=== PATIENT | female | born 1950 | race Caucasian/White ===

== ENCOUNTER 2017-10-08 11:11 | Outpatient (CLI) | payer MEDICARE, OTHER | END 2017-10-08 11:12 | disposition home or self-care (01) | LOC: BICMAMMO 11:11 | PROVIDERS: ATTEND Internal Medicine | DX: Z12.31 Encounter for screening mammogram for malignant neoplasm of breast (principal); R92.1 Mammographic calcification found on diagnostic imaging of breast; Z80.3 Family history of malignant neoplasm of breast | CPT/HCPCS: 77063; 77067 ==

== ENCOUNTER 2017-11-06 07:42 | Outpatient (CLI) | payer MEDICARE, OTHER ==
--- NOTE | 2017-11-06 13:44 | NM ---
RADIONUCLIDE GASTRIC EMPTYING SCAN: Date: 11/06/17 HISTORY: Nausea and vomiting RADIOPHARMACEUTICAL: 2 mCi technetium-99m sulfur colloid administered orally in scrambled eggs. FINDINGS/IMPRESSION: There is 58% emptying of the ingested gastric contents at 1 hour, 86% emptying at 2 hours, 91% emptyi ng at 3 hours, and 89% emptying at 4 hours. The calculated gastric emptying halftime measures 58 minutes. POS: [facility]
== END 2017-11-06 07:43 | disposition home or self-care (01) ==
LOC: NM 07:42
PROVIDERS: ATTEND Internal Medicine
DX: K59.00 Constipation, unspecified (principal); R11.2 Nausea with vomiting, unspecified
CPT/HCPCS: 78264; A9541

== ENCOUNTER 2018-03-16 20:02 | Inpatient (IN) | payer MEDICARE, OTHER ==
[~2018-03-16 20:02] MED LIST: ISOVUE-370 76%-LOCM 1 ML ONE
[2018-03-16] MEDS ORDERED: Albuterol Sulfate 2.5 mg/3 ml Neb ONE (20:39)
[2018-03-16] MEDS ORDERED: Lorazepam 2 MG/ML VIAL ONE (20:43)
[2018-03-16] MEDS ORDERED: methylPREDNISolone Sod Succ/PF 125 MG/2 ML VIAL ONE (20:46)
[2018-03-16] MEDS ORDERED: Magnesium 2 GM/50 ML BAG (IN WATER) ONE (20:46)
[2018-03-16 20:51] LABS: #Basophils 0.1 thou/uL (0.0-0.2); #Eosinphils 0.8 thou/uL (0.0-0.7); #Lymphocytes 3.8 thou/uL (1.20-3.40); #Neutrophils 4.9 thou/uL (1.40-6.50); %Basophils 0.5 % (0.0-1.0); %Eosinophils 7.4 % (0.0-10.0); %Lymphocytes 36.3 % (21.0-51.0); %Monocytes 9.6 % (0.0-10.0); %Neutrophils 46.2 % (42.0-75.0); Hemoglobin 14.3 g/dL (12.0-16.0); Mean Corpuscular HGB CONC 33.5 g/dL (32.0-36.0); Mean Corpuscular Hemoglobin 30.2 pg (27.0-31.0); Mean Corpuscular Volume 89.9 fL (78.0-98.0); Mean Platelet Volume 8.7 fL (7.4-10.4); Platelet Count 219 thou/uL (130-400); RBC Distribution Width 12.6 % (11.5-14.5); Red Blood Cell (RBC) Count 4.75 mill/uL (4.20-5.40); White Blood Cell (WBC) Count 10.5 thou/uL (4.8-10.8)
[2018-03-16 21:06] LABS: ALT (SGPT) 23 U/L (8-55); AST (SGOT) 36 U/L (5-34); Albumin 4.2 g/dL (3.4-4.8); Alkaline Phosphatase 93 U/L (40-150); Anion Gap 17 mmol/L (10-20); BUN (Urea Nitrogen) 14 mg/dL (9.8-20.1); Bilirubin, Total 0.3 mg/dL (0.2-1.2); Calc. Creatinine Clearance 0 mL/min (70-130); Calcium 9.2 mg/dL (7.8-10.44); Carbon Dioxide 24 mmol/L (23-31); Chloride 103 mmol/L (98-107); Estimated GFR-MDRD 67; Globulin 3.3 g/dL (2.4-3.5); Glucose 86 mg/dL (80-115); Magnesium 2.2 mg/dL (1.6-2.6); Potassium 3.5 mmol/L (3.5-5.1); Protein, Total 7.5 g/dL (6.0-8.3); Sodium 140 mmol/L (136-145)
[2018-03-16 21:40] LABS: Actual Bicarbonate (HCO3v) 26 mEq/L (22-28); Analyzer IN Cardio ER; Base Excess 0.3 mEq/L (-2.0 to +3.0); Calcium, Ionized 1.13 mmol/L (1.16-1.32); Chloride (ABG LAB) 101 mmol/L (98-106); Hemoglobin (Hb) 14.3 g/dL (11.7-16.1); Potassium - ABG Lab 3.03 mmol/L (3.70-5.30); Sodium 137.7 mmol/L (133-146); pH (venous) 7.38 (7.32-7.43)
--- NOTE | 2018-03-16 21:58 | RAD ---
ONE VIEW CHEST: History: Cough. Congestion. Comparison: 10-04-15 FINDINGS: Portable upright chest demonstrates a stable left sided transvenous pacemaker. Normal cardiac silhoue tte. Pulmonary vessels and hilum are normal. Costophrenic angles are clear. Chronic change of lung pa renchyma. Lung volumes are diminished, likely due to a poor inspiratory effort. No masses or consolid ation. No pneumothorax. No osseous abnormality. IMPRESSION: No acute cardiopulmonary process. POS: [facility]
[2018-03-16 22:32] LABS: Bilirubin Negative (Negative); Blood, Urine Negative (Negative); Clarity CLEAR (Clear); Glucose, Urine (Dipstick) Negative (Negative); Leukocyte Negative (Negative); Nitrite Negative (Negative); Protein, Urine (Dipstick) Negative (Neg-Trace); Specific Gravity, Urine 1.022 (1.002-1.036); pH, Urine 6.5 (5.0-9.0)
--- NOTE | 2018-03-16 23:54 | CT ---
CT ANGIOGRAM OF THE CHEST: History: Elevated D-Dimer. Cough and congestion. Shortness of breath. Comparison: None. Technique: CT angiogram of the chest was performed in the axial plane. 3D reformatted images are subm itted for interpretation. FINDINGS: Central bronchi are patent. Tiny bleb in the right lower lobe measuring 7 mm. No masses or consolidat ion. No pleural effusion or pneumothorax. There is evidence of previous bariatric surgical change. Upper abdominal solid organs are otherwise u nremarkable. Gallbladder is surgically absent. Left extrarenal pelvis is noted. No mediastinal mass, lymphadenopathy or hematoma. Heart size is within normal limits. No pericardial effusion. The thoracic aorta and upper abdominal aorta have normal caliber. No periaortic fat strandi ng. Adequate contrast opacification of the pulmonary arterial system to the level of segmental arteries. No filling defect to suggest thromboembolism. No lytic or blastic lesions in the osseous structures. IMPRESSION: 1. No evidence of pulmonary artery aneurysm to the level of the segmental arteries. POS: [facility]
[2018-03-17 00:46] LABS: Lactic Acid 1.3 mmol/L (0.5-2.2)
[2018-03-17 01:34] LABS: Troponin I Less than 0.010 ng/mL (< 0.028)
[2018-03-17] MEDS ORDERED: Bisacodyl 5 MG TAB PO PRN (03:03)
[2018-03-17] MEDS ORDERED: Acetaminophen 325 MG TAB PO PRN (03:03)
[2018-03-17] MEDS ORDERED: Senokot S 8.6-50 MG TAB PO PRN (03:03)
[2018-03-17] MEDS ORDERED: Ondansetron ODT 4 MG TAB PO PRN (03:03)
[2018-03-17] MEDS ORDERED: Ondansetron PF 4 MG/2 ML Vial IVP PRN (03:03)
[2018-03-17] MEDS ORDERED: Zolpidem Tartrate 5 MG TAB PO PRN (03:03)
[2018-03-17 03:06] LABS: Troponin I Less than 0.010 ng/mL (< 0.028)
[2018-03-17 03:37] VITALS: BMI 35.1
[2018-03-17] MEDS ORDERED: tiZANidine HCl 4 MG TAB PO SCH ×2 (05:15→21:00)
[2018-03-17] MEDS ORDERED: Melatonin 3 MG TAB PO SCH (05:15)
[2018-03-17 07:44] LABS: #Basophils 0.1 thou/uL (0.0-0.2); #Lymphocytes 0.4 thou/uL (1.20-3.40); #Monocytes 0.1 thou/uL (0.11-0.59); #Neutrophils 7.4 thou/uL (1.40-6.50); %Eosinophils 0.3 % (0.0-10.0); %Lymphocytes 5.2 % (21.0-51.0); %Neutrophils 92.5 % (42.0-75.0); Hemoglobin 13.1 g/dL (12.0-16.0); Mean Corpuscular HGB CONC 33.3 g/dL (32.0-36.0); Mean Corpuscular Hemoglobin 30.1 pg (27.0-31.0); Mean Corpuscular Volume 90.5 fL (78.0-98.0); Mean Platelet Volume 9.4 fL (7.4-10.4); Platelet Count 186 thou/uL (130-400); RBC Distribution Width 12.7 % (11.5-14.5); Red Blood Cell (RBC) Count 4.34 mill/uL (4.20-5.40)
[2018-03-17 07:55] VITALS: BP 122/57; TEMP 98
[2018-03-17 08:05] LABS: Anion Gap 17 mmol/L (10-20); BUN (Urea Nitrogen) 12 mg/dL (9.8-20.1); Calc. Creatinine Clearance 81 mL/min (70-130); Calcium 8.9 mg/dL (7.8-10.44); Carbon Dioxide 23 mmol/L (23-31); Chloride 102 mmol/L (98-107); Estimated GFR-MDRD 61; Glucose 245 mg/dL (80-115); Potassium 3.5 mmol/L (3.5-5.1); Sodium 138 mmol/L (136-145)
[2018-03-17] MEDS ORDERED: Famotidine 20 MG TAB PO SCH (09:00)
--- NOTE | 2018-03-17 13:37 | HP ---
REASON FOR ADMISSION: Acute bronchitis. HISTORY OF PRESENTING ILLNESS: The patient gives history of having fever, cold , and cough 10 days back. She had gone to see her primary care physician. She was given a cough syrup at bedtime and Tessalon Perles daily along with doxycycline. The patient went to [place] and came back 2 days back. She still has cough with expectoration of greenish sputum. No fever or such. Her shortness of breath got worse and the patient made it to the emergency room. Currently, she is feeling better this morning. Has no fever or chest pain, palpitation, PND, or orthopnea. She is ambulating and eating well. PAST MEDICAL AND SURGICAL HISTORY: History of migraine, pacemaker, dyslipidemia , hypothyroidism, paroxysmal atrial fibrillation, GERD, bilateral knee surgery with one side replacement, back surgery, appendectomy, carpal tunnel surgery, cholecystectomy, gastric bypass. CURRENT MEDICATIONS: Has finished a course of doxycycline and is taking a cough syrup with codeine p.r.n., Crestor, Synthroid, medication for GERD twice daily, flecainide 50 mg twice daily, aspirin 81 mg daily. ALLERGIES: ALLERGIC TO CODEINE, MORPHINE, AND PENICILLIN. SHE IS ALSO ALLERGIC TO ADHESIVES. PERSONAL HISTORY: Does not abuse alcohol or drugs. No history of smoking. FAMILY HISTORY: Mother at the age of 77 years. She has had history of coronary artery disease. Father at the age of 55. He has had RI and was a heavy smoker as well. Code status is full. Power of securities attorney is her . REVIEW OF SYSTEMS: CONSTITUTIONAL: Negative for weight loss or gain, ability to conduct usual activities. SKIN: Negative for rash, itching. EYES: Negative for double vision, pain. ENT/MOUTH: Negative for nose bleeding, neck stiffness, pain, tenderness. CARDIOVASCULAR: Negative for palpitations, dyspnea on exertion, orthopnea. RESPIRATORY: Negative for shortness of breath, wheezing, cough, hemoptysis, fever or night sweats. GASTROINTESTINAL: Negative for poor appetite, abdominal pain, heartburn, nausea , vomiting, constipation, or diarrhea. GENITOURINARY: Negative for urgency, frequency, dysuria, nocturia. MUSCULOSKELETAL: Negative for pain, swelling. NEUROLOGIC/PSYCHIATRIC: Negative for anxiety, depression. ALLERGY/IMMUNOLOGIC: Negative for skin rash, bleeding tendency. PHYSICAL EXAMINATION: GENERAL: The patient is a 67-year-old female, who is currently not in any acute distress. VITAL SIGNS: Blood pressure on arrival 168/88; pulse 86 per minute; respiratory rate 36 on arrival, currently 18 per minute; temperature 98.1 degrees Fahrenheit ; saturating 96% on room air. NECK: Supple. No elevated JVD. HEENT: Eyes; extraocular muscles intact. Pupils reacting to light. Oral cavity; mucous membranes are moist. No exudates or congestion. CARDIOVASCULAR SYSTEM: S1 and S2 heard. Regular rhythm. RESPIRATORY SYSTEM: Air entry 1+ bilateral. Scattered rhonchi plus no wheezes or rales. ABDOMEN: Soft. Bowel sounds heard. No tenderness, rigidity, or guarding. EXTREMITIES: No peripheral edema or calf tenderness. VASCULAR SYSTEM: Peripheral pulses 1+ bilateral. No ischemic ulcerations or gangrene. CENTRAL NERVOUS SYSTEM: No gross focal deficits noted. The patient is alert, awake, and oriented well. PSYCHIATRIC SYSTEM: The patient's mood is euthymic. No hallucinations or delusions. LABORATORY DATA: CT angio chest done, shows no evidence of PE. White count of 10, H and H of 14 and 42, platelet count 219 with 46% neutrophils , MCV is 89. BUN 14, creatinine 0.8, serum glucose 86. Troponin x2 negative. BNP is 87. UA shows no evidence of infection. Blood cultures preliminary x2 is negative. EKG done, shows sinus rhythm at 77 beats per minute with nonspecific ST-T wave changes. CLINICAL IMPRESSION AND PLAN: The patient should be shortly discharged to home as she is feeling much better. She is ambulating and eating well as well. She needs to continue a short course of prednisone along with Levaquin for 5 days and albuterol inhaler q.6 hourly p.r.n. She needs to continue all the rest of her medications as before. The patient has been advised to follow up with her primary care physician in 1 week. Her viral respiratory PCR has come back +ve for rhinovirus. Likely has had secondary bacterial infection with broncho pneumonia. Please note, this is a same day admit/discharge under observation status. Job ID: [id number] [facility]
--- NOTE | 2018-03-29 19:10 | EKG ---
Test Reason : Blood Pressure : / mmHG Vent. Rate : 077 BPM Atrial Rate : 077 BPM P-R Int : 120 ms QRS Dur : 076 ms QT Int : 398 ms P-R-T Axes : 050 -05 052 degrees QTc Int : 450 ms Sinus rhythm with Premature supraventricular complexes Otherwise normal ECG Confirmed by SANTOS BARRAZA ([id number]), managing editor EDUARDO MURPHY ([id number] on 03/29/2018 7:10:12 PM Referred By: Confirmed By:SANTOS BARRAZA
== END 2018-03-17 10:26 | disposition home or self-care (01) | DRG 195 ==
LOC: ERS 20:02 → OBSVTOIN 03-17 01:08 → 2SW 03-17 01:08
PROVIDERS: ADMIT Internal Medicine; ATTEND Internal Medicine
DX: J18.0 Bronchopneumonia, unspecified organism (principal); E78.5 Hyperlipidemia, unspecified; I48.0 Paroxysmal atrial fibrillation; K21.9 Gastro-esophageal reflux disease without esophagitis; E03.9 Hypothyroidism, unspecified; J20.6 Acute bronchitis due to rhinovirus; Z95.0 Presence of cardiac pacemaker; Z98.84 Bariatric surgery status; Z79.82 Long term (current) use of aspirin; Z79.899 Other long term (current) drug therapy; Z88.0 Allergy status to penicillin; Z88.8 Allergy status to other drugs, medicaments and biological substances; Z82.49 Family history of ischemic heart disease and other diseases of the circulatory system
CPT/HCPCS: 36415; 71045; 71275; 80048; 80053; 81003; 82805; 83605; 83735; 83880; 84484; 85025; 85379; 87040; 87633; 93005; 94660; 94760; 96361; 96365; 96366; 96375; G0378; J1956; J2060; J2930; J7611; J7620

== ENCOUNTER 2018-03-27 13:40 | Outpatient (CLI) | payer MEDICARE, OTHER ==
--- NOTE | 2018-03-27 15:17 | BD ---
BONE DENSITOMETRY: INDICATION: A 67-year-old female for postmenopausal osteoporosis screening. FINDINGS: Right hip femoral neck 0.686 T-Score: 1.5 Total right hip 0.751 T-Score: 1.6 Left hip femoral neck 0.626 T-Score: 2.0 Total right hip 0.790 T-Score: -1.2 IMPRESSION: Density of both femoral necks indicate osteopenia. TEN-YEAR FRACTURE RISK: Major osteoporotic fracture: 8.8%. Hip fracture: 1.0%. POS: [facility]
== END 2018-03-27 13:41 | disposition home or self-care (01) ==
LOC: BICMAMMO 13:40
PROVIDERS: ATTEND Internal Medicine
DX: Z13.820 Encounter for screening for osteoporosis (principal); M85.852 Other specified disorders of bone density and structure, left thigh; Z78.0 Asymptomatic menopausal state
CPT/HCPCS: 77080

== ENCOUNTER 2018-07-07 08:14 | Outpatient (CLI) | payer MEDICARE, OTHER ==
--- NOTE | 2018-07-07 09:14 | ULT ---
EXAM: US Gallbladder RUQ CLINICAL HISTORY: Transaminitis. COMPARISON: CT IVP dated December 26, 2015 FINDINGS: Liver:No focal hepatic lesion Bile ducts: Intrahepatic bile ducts are not dilated.The common bile measured 5.8 mm. Gallbladder: Surgically absent Martinez's sign:None Main portal vein:Patent with hepatopedal flow. Pancreas: Head and body appear normal; tail obscured by bowel gas. Right kidney: No pelvicalyceal dilatation. Right kidney measuring 10.6 cm in length. IMPRESSION: Normal RUQ ultrasound. Cholecystectomy.
== END 2018-07-07 08:15 | disposition home or self-care (01) ==
LOC: BICULT 08:14
PROVIDERS: ATTEND Internal Medicine
DX: R74.0 Nonspecific elevation of levels of transaminase and lactic acid dehydrogenase [LDH] (principal); Z90.49 Acquired absence of other specified parts of digestive tract
CPT/HCPCS: 76705

== ENCOUNTER 2018-09-25 08:59 | Outpatient (CLI) | payer MEDICARE, OTHER ==
--- NOTE | 2018-09-25 10:46 | CT ---
CT LUMBAR SPINE: Date: 09/25/18 Multiple axial tomograms obtained through the lumbar spine with multiplanar reconstruction. INDICATIONS: Intervertebral disc disorder. Lumbar radiculopathy. FINDINGS: Pedicle screws and rods are seen at L4-L5. There is an interbody implant at this level and anterior s crew. Partial fusion. Lumbar vertebra maintain height. Degenerative disc changes are seen at all levels. Prominent osteophy shalini from the lumbar vertebra. The T12-L1 broad based disc bulge flattens the thecal sac. Mild asymmetric bulge to the right. Right foraminal encroachment due to asymmetric disc bulge. At L1-2, broad based disc bulge and associated facet hypertrophy result in mild to moderate central c anal stenosis. Right foraminal stenosis due to disc bulge and hypertrophic change. At L2-3, diffuse disc bulge with associated facet and ligamentous hypertrophy results in moderate to severe central canal stenosis. Right foraminal stenosis secondary to asymmetric disc bulge into the r ight foramina and facet hypertrophy. At L3-4, there is broad based disc bulge. Prominent facet hypertrophy. Spinal canal is suboptimally e valuated due to spray artifact from the pedicle screws. There is laminectomy change posteriorly on th e left. Facet hypertrophy. Evidence of moderate central canal stenosis. Right foraminal stenosis due to asymmetric disc bulge and facet hypertrophy. Mild left foraminal stenosis. Pedicle screws at L4 are in place. The left pedicle screw traverses the lateral recess. At L4-5, spinal canal is obscured due to spray artifact. No evidence of central canal or foraminal st enosis. Pedicle screws at L5 appear in adequate position. At L5-S1, there is broad based disc bulge. Facet hypertrophy. Posterior laminectomy change. Congenita lly smaller thecal sac; however, the changes do result in moderate central canal stenosis. IMPRESSION: Postoperative and degenerative changes of the lumbar spine with central canal and foraminal stenosis at multiple levels as described above. POS: [facility]
--- NOTE | 2018-09-25 11:20 | RAD ---
LUMBAR SPINE 4 VIEWS: Lateral views were obtained in neutral, flexion, and extension positions. HISTORY: Back pain. FINDINGS: Pedicle screws at L4-5 with interbody implant at L4-5 and anterior screw at L4. Grade I anterolisthe sis of L5-S1 with loss of disk space. Loss of disk space. Loss of disk space at all lumbar levels. Mild degenerative spurring and mild facet hypertrophy. IMPRESSION: Postoperative degenerative changes of lumbar spine as described. A grade I anterolisthesis at L5-S1. POS: [facility]
== END 2018-09-25 09:00 | disposition home or self-care (01) ==
LOC: BICCT 08:59
PROVIDERS: ATTEND Specialist
DX: M51.16 Intervertebral disc disorders with radiculopathy, lumbar region (principal); M47.26 Other spondylosis with radiculopathy, lumbar region; M48.061 Spinal stenosis, lumbar region without neurogenic claudication; M48.07 Spinal stenosis, lumbosacral region; M43.17 Spondylolisthesis, lumbosacral region; Z98.1 Arthrodesis status
CPT/HCPCS: 72120; 72131

== ENCOUNTER 2018-12-04 07:20 | Day surgery (SDC) | payer MEDICARE, OTHER ==
[2018-12-04 07:47] VITALS: BMI 38.7
--- NOTE | 2018-12-04 11:45 | CT ---
CT lumbar spine postmyelogram: HISTORY: Low back pain. History of prior low back surgery. COMPARISON: Noncontrast CT lumbar spine on 09/25/2018. FINDINGS: Postsurgical changes of the stomach are partially imaged. Vascular calcifications are seen in the abd ominal aorta and involving the iliac arteries. Postsurgical changes of the lumbar spine are again seen related to posterior fusion at the L4-5 level with bipedicular screws and posterior rods transfix seen this level. Intradiscal prosthesis is again present. A single screw is seen anteriorly within the L4 vertebral body. Vertebral body heights are within normal limits. No fracture is seen. Multilevel degenerative changes are present throughout the lumbar spine with vacuum phenomenon seen in the intervertebral discs of the lumbar spine and visualized lower thoracic spine as well as narrowing of the intervertebral disc spaces at all levels. T11-12 and T12-L1 levels: There are disc osteophyte complexes present at each of these levels which n arrows the ventral subarachnoid space at these levels. Mild right-sided neural foraminal narrowing is seen at the T12-L1 level. Left neural foramen at this level as well as each neural foramen at the T11-12 level appear patent. L1-2: There is a broad-based disc osteophyte complex with facet hypertrophic changes and ligamentous thickening. Again noted is moderate narrowing of the central spinal canal with mild narrowing of the lateral recesses at this level. There is mild to moderate bilateral neural foraminal narrowing. L2-3: Broad-based disc osteophyte complex is again seen. Facet hypertrophic changes are noted. Again present is moderate narrowing of the central spinal canal. There is narrowing of the lateral recesses at this level. Mild bilateral neural foraminal narrowing is present. L3-4: There is a broad-based disc osteophyte complex and facet hypertrophic changes. Moderate narrowi ng of the central spinal canal is again present. Mild bilateral neural foraminal narrowing is present overall similar to the prior study. Left laminotomy defect is seen on the left. L4-5: The neural foramina are partially obscured due to significant spray artifact from spinal hardwa re which limits adequate evaluation of each neural foramen. However, there does not appear to be evidence of a high-grade stenosis. There is also limited evaluation of the anterior aspect of the laurel tral canal at this level, but there is no significant central canal narrowing present. L5-S1: There is slight grade 1 anterolisthesis of L5 on S1 overall similar to the prior exam. A mild broad-based disc osteophyte complex is present with facet hypertrophic changes also present. Left laminotomy defect is again present. There are prominent facet hypertrophic changes at this level with irregularity of the facets. No encroachment on the central canal. Artifact limits evaluation of each neural foramen, but no high-grade stenosis is present. The thecal sac at this level is congenita lly small and similar to prior exam. IMPRESSION: 1. Postoperative and degenerative changes of the lumbar spine. 2. Stable grade 1 anterolisthesis of L5 on S1 Transcribed Date/Time: 12/04/2018 12:00 PM
--- NOTE | 2018-12-04 13:32 | RAD ---
EXAM: XR Myelogram Lumbar Spine PROVIDED CLINICAL HISTORY: Low back pain and lower extremity pain. History of prior low back surgery. COMPARISON: None TECHNIQUE: The procedure including the risks and complications were explained to the patient, and informed conse nt was obtained. The patient was placed on the fluoroscopy table in the prone position. An area overlying the L2-3 interspace was marked and then meticulously prepped and draped in the usual steril e fashion. A 22-gauge spinal needle was advanced into the thecal sac. The inner stylette was removed with a return of clear cerebral spinal fluid. Approximately 8 mL of Isovue-M 200 contrast was instilled into the thecal sac. The inner stylette was replaced, and the needle was removed. Hemostasis was achieved with direct pressure, and dry sterile dressing was placed. Patient tolerated the procedure well and without immediate complication. Patient was transported to CT scanner for further imaging of the lumbar spine. FINDINGS: Youth Director images of the lumbar spine demonstrate postsurgical changes at the L4-5 level related to posterior fusion with bipedicular screws and posterior rods transfixing this level. A screw within the anterior aspect of the L4 vertebral body is noted. Intradiscal prosthesis is present. No h ardware complication is seen. Postsurgical changes lower lumbar spine are unchanged compared to a study on 09/25/2018. Degenerative changes are again seen throughout the lower thoracic as well as invo lving the lumbar spine. There is slight grade 1 anterolisthesis of L5 on S1 similar to prior study. Multiple surgical clips as well as radiopaque suture material overlies the upper abdomen with surgica l clips overlying the pelvis. A lumbar myelogram was successfully performed with puncture at the L2-3 level. Fluoroscopy: Time-0.4 minutes Dose-80 microGy meter squared IMPRESSION: 1. Technically successful lumbar myelogram. Please see CT scan lumbar spine performed after this exam for further details. 2. Grade 1 anterolisthesis of L5 on S1 with multilevel degenerative changes involving the lumbar spin e. 3. Postsurgical changes L4-5 level.
== END 2018-12-04 09:55 | disposition home or self-care (01) ==
LOC: RAD 07:20
PROVIDERS: ATTEND Physician Assistant Surgical
PROC: B02B1ZZ Computerized Tomography (CT Scan) of Spinal Cord using Low Osmolar Contrast (ICD-10-PCS; principal; 2018-12-04)
DX: M51.16 Intervertebral disc disorders with radiculopathy, lumbar region (principal); M48.061 Spinal stenosis, lumbar region without neurogenic claudication; J44.9 Chronic obstructive pulmonary disease, unspecified; E78.5 Hyperlipidemia, unspecified; K21.9 Gastro-esophageal reflux disease without esophagitis; I48.91 Unspecified atrial fibrillation; Z88.0 Allergy status to penicillin; Z88.5 Allergy status to narcotic agent; Z95.0 Presence of cardiac pacemaker
CPT/HCPCS: 62304; 72132

== ENCOUNTER 2019-01-02 09:18 | Outpatient (CLI) | payer MEDICARE, OTHER ==
[2019-01-02 14:20] LABS: Hemoglobin 14.2 g/dL (12.0-16.0); Mean Corpuscular HGB CONC 33.7 g/dL (32.0-36.0); Mean Corpuscular Hemoglobin 31.2 pg (27.0-31.0); Mean Corpuscular Volume 92.4 fL (78.0-98.0); Mean Platelet Volume 8.6 fL (7.4-10.4); Platelet Count 219 thou/uL (130-400); RBC Distribution Width 12.2 % (11.5-14.5); Red Blood Cell (RBC) Count 4.55 mill/uL (4.20-5.40); White Blood Cell (WBC) Count 6.4 thou/uL (4.8-10.8)
[2019-01-02 14:31] LABS: PTT 31.3 SEC (22.9-36.1); Prothrombin Time 13.7 SEC (12.0-14.7)
[2019-01-02 14:40] LABS: Sodium 138 mmol/L (136-145)
[2019-01-02 14:41] LABS: Anion Gap 15 mmol/L (10-20); BUN (Urea Nitrogen) 11 mg/dL (9.8-20.1); Calc. Creatinine Clearance 0 mL/min (70-130); Calcium 10.1 mg/dL (7.8-10.44); Carbon Dioxide 29 mmol/L (23-31); Chloride 98 mmol/L (98-107); Estimated GFR-MDRD 65; Glucose 113 mg/dL (80-115)
--- NOTE | 2019-01-05 23:09 | EKG ---
Test Reason : Blood Pressure : / mmHG Vent. Rate : 068 BPM Atrial Rate : 068 BPM P-R Int : 162 ms QRS Dur : 084 ms QT Int : 416 ms P-R-T Axes : 051 -05 021 degrees QTc Int : 442 ms Electronic atrial pacemaker When compared with ECG of 16-MAR-2018 20:40, Electronic atrial pacemaker has replaced Sinus rhythm Nonspecific T wave abnormality no longer evident in Lateral leads Confirmed by KATHIE DANIELS M.D. ([id number]) on 01/05/2019 11:09:21 PM Referred By: ARETHA Confirmed By:KATHIE DANIELS M.D.
== END 2019-01-02 09:19 | disposition home or self-care (01) ==
LOC: LABBT 09:18
PROVIDERS: ATTEND Surgery
DX: Z01.818 Encounter for other preprocedural examination (principal); M54.16 Radiculopathy, lumbar region; M48.062 Spinal stenosis, lumbar region with neurogenic claudication
CPT/HCPCS: 80048; 85027; 85610; 85730; 93005; 93010

== ENCOUNTER 2019-01-09 06:10 | Inpatient (IN) | payer MEDICARE, OTHER ==
[2019-01-09] MEDS ORDERED: Fentanyl 250 MCG/5 ML VIAL ONE (06:20)
[2019-01-09] MEDS ORDERED: Thrombin 5000 UNITS/5 ML VIAL ONE ×3 (06:32→09:47)
[2019-01-09] MEDS ORDERED: Bacitracin Zinc Ointment 30 gm TUBE ONE (06:32)
[2019-01-09] MEDS ORDERED: Levofloxacin 500 mg/D5W 100 ml Premix Bag ONE (06:38)
[2019-01-09] MEDS ORDERED: Clindamycin/D5W 900 mg/50 ml Premix Bag ONE (06:38)
[2019-01-09] MEDS ORDERED: Promethazine HCl 25 MG/ML VIAL SLOW IVP PRN (06:55)
[2019-01-09] MEDS ORDERED: Ondansetron HCl/PF 4 MG/2 ML Vial IVP PRN (06:55)
[2019-01-09] MEDS ORDERED: Promethazine HCl 25 MG/ML VIAL IM PRN (06:55)
[2019-01-09] MEDS ORDERED: Midazolam HCl 2 mg/2 ml Vial ONE (07:18)
[2019-01-09] MEDS ORDERED: Phenylephrine HCL 10 MG/ML VIAL ONE (09:31)
[2019-01-09] MEDS ORDERED: Fleet Enema 133 ML BOT PR PRN (11:44)
[2019-01-09] MEDS ORDERED: HYDROcodone/Acetaminophen 7.5/325 mg Tablet PO PRN ×2 (11:44)
[2019-01-09] MEDS ORDERED: Milk Of Magnesia 30 ML UDCUP PO PRN (11:44)
[2019-01-09] MEDS ORDERED: Acetaminophen 325 MG TAB PO PRN (11:44)
[2019-01-09] MEDS ORDERED: Bisacodyl 10 MG SUPP PR PRN (11:44)
[2019-01-09] MEDS ORDERED: Acetaminophen/Codeine 30-300mg Tablet PO PRN (11:44)
[2019-01-09] MEDS ORDERED: Mag-Al 1200 mg/1200 mg/30 ML UDCUP PO PRN (11:44)
[2019-01-09] MEDS ORDERED: traMADol HCl 50 MG TAB PO PRN (11:44)
[2019-01-09] MEDS ORDERED: Methocarbamol 500 MG TAB PO PRN (11:52)
[2019-01-09] MEDS ORDERED: Azelastine 137 MCG/Spray 30 ML NS PRN (11:52)
--- NOTE | 2019-01-09 11:57 | OP ---
DATE OF PROCEDURE: 01/09/2019 LOCATION: OR 5. TEMPERATURE CONTROL INSPECTOR: Abrahan Salguero PA-C PREPROCEDURE DIAGNOSES: Multilevel lumbar stenosis with low back and leg pain with prior L4-L5 decompression fusion at outside institution with prior L4-L5 and L5-S1 surgery at outside institution. PROCEDURES PERFORMED: 1. L1-L2, L2-L3, and L3-L4 laminectomies, partial facetectomies, and foraminotomies. 2. Bilateral L5-S1 revision hemilaminotomy surgery (modifier 50 should be added to this surgery as it was a bilateral procedure at L5-S1). DESCRIPTION OF PROCEDURE: After informed consent was obtained from the patient, the patient was brought to the OR. Proper patient, pause, and identification were carried out. She was placed under excellent general endotracheal anesthesia and positioned prone on the OR table. All appropriate points were padded. We identified an incision that would allow for approach from L1 through S1. She had two paramedian incisions from the outside institution. We did not use these. Sterile cleansing, preparation, and draping occurred. The wound was then opened with a combination of sharp, monopolar, and blunt dissection. The L1, L2, L3, L4, L5, and S1 dorsal spines were all exposed. Localization film confirmed area of interest. We then performed bilateral L5-S1 hemilaminotomy and foraminotomy for decompression of bilateral L5-S1 nerve roots and turned our attention to the L1, L2, L3, and L4 segments. An L1-L2, L2-L3, and L3-L4 laminectomies, partial facetectomies, and foraminotomies were performed with excellent decompression of common dural tube and nerve roots. Copious irrigation occurred throughout as did maximizing hemostasis. There was no spinal fluid leak. The wound was then closed in anatomic layers following sprinkling of vancomycin powder. The patient emerged from anesthesia. Job ID: [id number]
[2019-01-09] MEDS ORDERED: Fentanyl 100 MCG/2 ML VIAL ONE ×3 (12:09→13:19)
[2019-01-09] MEDS ORDERED: [UNRECOGNIZED DRUG - REMARK] FS SCH (12:15)
[2019-01-09 15:01] LABS: #Basophils 0.1 thou/uL (0.0-0.2); #Lymphocytes 1.5 thou/uL (1.20-3.40); #Monocytes 0.5 thou/uL (0.11-0.59); #Neutrophils 12.3 thou/uL (1.40-6.50); %Basophils 0.6 % (0.0-1.0); %Eosinophils 0.1 % (0.0-10.0); %Lymphocytes 10.4 % (21.0-51.0); %Monocytes 3.3 % (0.0-10.0); %Neutrophils 85.6 % (42.0-75.0); Hemoglobin 12.4 g/dL (12.0-16.0); Mean Corpuscular Hemoglobin 31.8 pg (27.0-31.0); Mean Corpuscular Volume 93.5 fL (78.0-98.0); Mean Platelet Volume 8.4 fL (7.4-10.4); Platelet Count 216 thou/uL (130-400); RBC Distribution Width 12.2 % (11.5-14.5); White Blood Cell (WBC) Count 14.3 thou/uL (4.8-10.8)
[2019-01-09] MEDS: Naloxone HCl 0.4 mg/ml Vial IV SCH ×2 (15:10→16:50)
[2019-01-09 15:22] LABS: ALT (SGPT) 49 U/L (8-55); AST (SGOT) 56 U/L (5-34); Alkaline Phosphatase 75 U/L (40-110); Anion Gap 13 mmol/L (10-20); BUN (Urea Nitrogen) 17 mg/dL (9.8-20.1); Bilirubin, Total 0.4 mg/dL (0.2-1.2); Calc. Creatinine Clearance 68 mL/min (70-130); Calcium 8.9 mg/dL (7.8-10.44); Carbon Dioxide 26 mmol/L (23-31); Chloride 103 mmol/L (98-107); Estimated GFR-MDRD 49; Globulin 2.5 g/dL (2.4-3.5); Glucose 137 mg/dL (80-115); Protein, Total 6.5 g/dL (6.0-8.3); Sodium 138 mmol/L (136-145)
--- NOTE | 2019-01-09 15:28 | CT ---
CT BRAIN NONCONTRAST: 01/09/2019 HISTORY: A 68-year-old female who remains unconscious after syncope. Altered mental status. FINDINGS: There is no midline shift or any other mass effect. There is no evidence of acute intracranial hemor rhage, large cortical infarct, obstructive hydrocephalus, or extraaxial fluid collection. The calvar ium is intact. IMPRESSION: No acute intracranial findings. jn [] POS: [facility]
[2019-01-09] MEDS: Sodium Chloride 0.9% 1,000 ML IV SCH (15:46)
[2019-01-09 16:04] VITALS: BMI 39.3
[2019-01-09] MEDS: Clindamycin/D5W 900 MG in Premix Bag 1 BAG IVPB SCH ×2 (16:34→23:10)
[2019-01-09] MEDS: Gabapentin 300 MG CAP PO SCH ×2 (16:35→20:07)
[2019-01-09] MEDS ORDERED: Levalbuterol HCl 0.63 MG/3 ML NEB NEB PRN (17:22)
[2019-01-09] MEDS: Acetaminophen 1,000 MG in Premix Bag 1 BAG IVPB SCH ×2 (17:43→23:37)
[2019-01-09] MEDS: Flecainide 50 MG TAB PO SCH (20:07)
[2019-01-09] MEDS ORDERED: Rosuvastatin 20 MG TAB PO SCH (21:00)
[2019-01-09] MEDS ORDERED: BECLOMETHASONE DIPROPIONATE IH SCH (21:00)
[2019-01-09] MEDS ORDERED: Ketorolac Tromethamine 30 MG/ML VIAL IVP SCH (21:30)
[2019-01-09] MEDS ORDERED: Temazepam 15 MG CAP PO PRN (23:15)
[2019-01-09] MEDS ORDERED: Fentanyl 100 MCG/2 ML VIAL SLOW IVP PRN (23:15)
--- NOTE | 2019-01-09 23:34 | CON ---
DATE OF CONSULTATION: PRIMARY CARE PHYSICIAN: Dr. Stahl. REASON FOR CONSULTATION: For medical management and postop syncope. HISTORY OF PRESENT ILLNESS: Ms. Suazo is a very pleasant 68-year-old female who has a history of atrial fibrillation as well as a previous pacemaker placement. She also has a history of chronic back pain and was admitted for an elective lumbar laminectomy. The patient had undergone the procedure and had returned from the PACU to the surgical floor. She had been there for about 30 minutes or so, had gotten up and gone to the bathroom. She was sitting on the toilet when she says she started to see everything start to go black and then apparently she passed out. She was then transferred up to the ICU for monitoring. When she came to, she was slightly disoriented, but did wonder why she was in a different room. When I come to see her, she is completely alert and oriented. She has no complaints. Prior to the event, she denied having any chest pain or shortness of breath. No palpitations. She denies having any dizziness or feeling lightheaded. She was given two 7.5 mg Paradise tablets prior to getting up and going to the bathroom and she was given a dose of fentanyl earlier that morning. She also reported that she was told that her blood pressure had been low during the operative procedure. The patient also denies any other symptoms such as palpitations, no nausea, no vomiting. She does note some pain in her legs, but otherwise no other complaints. REVIEW OF SYSTEMS: All systems were reviewed and are negative, except for that mentioned in the history of present illness. PAST MEDICAL HISTORY: Significant for atrial fibrillation, hypothyroidism, dyslipidemia, she has had a pacemaker placement. She has a history of migraine headaches as well as gastroesophageal reflux disease and COPD. PAST SURGICAL HISTORY: She has had bilateral knee surgery, appendectomy, as well as carpal tunnel syndrome, gallbladder surgery, and gastric bypass. ALLERGIES: TO PENICILLIN AND MORPHINE. FAMILY HISTORY: Significant for coronary artery disease, father who had myocardial infarction. SOCIAL HISTORY: She is a full code. Her is her medical power of assistant prosecuting attorney. She is and a nonsmoker and nondrinker. MEDICATIONS INCLUDE: 1. Tylenol No. 4. 2. Tizanidine. 3. Tambocor 50 mg daily. 4. Crestor 40 mg at bedtime. 5. Levothyroxine 25 mcg p.o. daily. 6. Gabapentin 300 mg t.i.d. 7. Cymbalta 60 mg daily. 8. Astelin nasal spray. 9. Aspirin 81 mg daily. PHYSICAL EXAMINATION: GENERAL: She is alert and oriented. She appears to be in no acute distress. She is well developed and well nourished. VITAL SIGNS: Blood pressure is ranging from 111/58 to 147/60, heart rate 83, respiratory rate of 20, and she is afebrile. HEENT: Pupils are equal, round, and reactive. Extraocular muscles are intact. Her sclerae are anicteric. Throat, no erythema, no exudates. NECK: No adenopathy. No bruits. LUNGS: She has some mild expiratory wheezing. There are no rhonchi. CARDIOVASCULAR: She has a normal S1, S2. There is no S3 or S4. No murmurs, clicks, or rubs. ABDOMEN: Obese. It is soft, nontender, and nondistended. Positive for bowel sounds. No rebound. No guarding. EXTREMITIES: There is trace edema. NEUROLOGICAL: She is moving all extremities. There does not appear to be any focal weakness. LABORATORY DATA: Sodium 138, potassium 4.0, chloride is 103, CO2 is 26, BUN is 17, creatinine 1.10, and glucose is 137. White blood cell count is 14.3, hemoglobin 12.4, hematocrit is 36.5, and platelet count is 216. She had an EKG which was sinus rhythm, the rate is in the 70s, and she did have some poor R-wave progression between V1 and V2. Her previous EKG on the shows a paced rhythm. Troponin was negative. ASSESSMENT: 1. This is a 68-year-old female who suffered a syncopal episode following surgery. I suspect this was likely a combination of the pain medications and volume depletion. I agree with placing her on IV fluids, careful with administration of the narcotic pain medications. Continue to trend the cardiac enzymes and monitoring on telemetry. Should she remain stable overnight with no elevation in her troponin with a stable blood pressure, then likely she should be stable for neurological disposition. She normally sees Dr. Adams as her crap shooter and she states that she has been stable with regard to her atrial fibrillation. 2. Hypothyroidism. This appears to be clinically stable. Continue her usual dose of Synthroid. 3. Chronic obstructive pulmonary disease. The patient says she is stable from this standpoint, has not had any difficulty with her breathing. We will have Xopenex inhaler available as needed. We will be happy to follow along with you. Job ID: [id number]
[2019-01-10 01:04] LABS: Troponin I 0.011 ng/mL (< 0.028)
[2019-01-10] MEDS: Sodium Chloride 0.9% 1,000 ML IV SCH (03:33)
[2019-01-10] MEDS ORDERED: Ketorolac Tromethamine 30 MG/ML VIAL IVP PRN (04:00)
[2019-01-10] MEDS: Acetaminophen 1,000 MG in Premix Bag 1 BAG IVPB SCH ×2 (05:21→12:54)
[2019-01-10] MEDS ORDERED: Levofloxacin 750 mg/D5W 500 MG in Premix Bag 1 BAG IVPB SCH (06:00)
[2019-01-10] MEDS ORDERED: Levothyroxine Sodium 25 MCG TAB PO SCH (06:00)
[2019-01-10] MEDS: Gabapentin 300 MG CAP PO SCH (08:53)
[2019-01-10] MEDS: Flecainide 50 MG TAB PO SCH (08:53)
--- NOTE | 2019-01-10 08:56 | PDOC.HOSPP ---
- Subjective Encounter Date: 01/10/19 Encounter Time: 08:40 Subjective: f/u for post-op syncope after lumbar laminectomy. Feels good this am and ready to go home. - Objective Vital Signs & Weight: Vital Signs (12 hours) Temp Pulse Resp BP 01/10/19 03:37 100.0 F H 69 18 137/63 Weight Weight 201 lb 8.04 oz Most Recent Monitor Data Heart Rate from ECG 84 NIBP 123/47 NIBP BP-Mean 72 Respiration from ECG 17 SpO2 96 I&O: 01/09/19 01/10/19 01/11/19 06:59 06:59 06:59 Intake Total 704 Balance 704 Result Diagrams: 01/09/19 14:45 01/09/19 14:45 Additional Labs: Accuchecks 01/09/19 14:49 POC Glucose 127 H Laboratory Tests 01/09/19 01/09/19 01/10/19 14:45 14:45 00:34 Troponin I Less than 0.010 0.011 B-Natriuretic Peptide 48.2 01/10/19 04:19 Troponin I 0.020 B-Natriuretic Peptide Radiology Reviewed by me: Yes (CT brain - negative) EKG Reviewed by me: Yes (Tele - SR, occasional PAC's) Hospitalist ROS - Medication Medications: Active Medications Generic Name Dose Route Start Last Admin Trade Name Freq PRN Reason Stop Dose Admin Duloxetine HCl 60 mg 01/10/19 09:00 01/10/19 08:53 Cymbalta PO 60 mg DAILY MARLEN Administration Fentanyl 25 mcg 01/09/19 23:15 01/10/19 08:47 Sublimaze SLOW IVP 25 mcg Q4H PRN Administration Moderate to Severe Pain (6-10) Flecainide Acetate 50 mg 01/09/19 21:00 01/10/19 08:53 Tambocor PO 50 mg BID MARLEN Administration Gabapentin 300 mg 01/09/19 15:00 01/10/19 08:53 Neurontin PO 300 mg TID MARLEN Administration Levofloxacin 500 mg/ Device 100 mls @ 100 mls/hr 01/10/19 06:00 01/10/19 05: 25 IVPB 01/11/19 06:59 100 mls Q24HR MARLEN Administration Sodium Chloride 1,000 mls @ 75 mls/hr 01/09/19 11:45 01/10/19 03:33 Normal Saline 0.9% IV 1,000 mls .[id number] MARLEN Administration Acetaminophen 1,000 mg/ Device 100 mls @ 400 mls/hr 01/09/19 18:00 01/10/19 05:21 IVPB 01/10/19 12:14 100 mls Q6HR MARLEN Administration Levothyroxine Sodium 25 mcg 01/10/19 06:00 01/10/19 05:21 Synthroid PO 25 mcg 0600 MARLEN Administration Rosuvastatin Calcium 40 mg 01/09/19 21:00 01/09/19 20:07 Crestor PO 40 mg HS MARLEN Administration Temazepam 15 mg 01/09/19 23:15 01/09/19 23:37 Restoril PO 15 mg HSPRN PRN Administration Insomnia Triamterene/HCTZ 2 tab 01/10/19 09:00 01/10/19 08:52 Maxzide 75/50 PO 2 tab DAILY MARLEN Administration - Exam General Appearance: NAD, awake alert Eye: PERRL, anicteric sclera ENT: normocephalic atraumatic, no oropharyngeal lesions Neck: supple, symmetric, no JVD, no thyromegaly, no lymphadenopathy Heart: RRR, no murmur, no gallops, no rubs, normal peripheral pulses Respiratory: CTAB, no wheezes, no rales, no ronchi, normal chest expansion Gastrointestinal: soft, non-tender, non-distended, normal bowel sounds Extremities: no cyanosis, no clubbing, no edema Skin: normal turgor Neurological: cranial nerve grossly intact, no focal deficits, no new deficit Musculoskeletal: normal tone, normal strength Psychiatric: normal affect, A&O x 3 Hosp A/P (1) Syncope Code(s): R55 - SYNCOPE AND COLLAPSE Status: Acute Plan: Likely multifactorial including medication effect in addition to volume depletion, encourage increased free-H2O, limit over-sedation with pain meds (2) Hypertension Code(s): I10 - ESSENTIAL (PRIMARY) HYPERTENSION Status: Chronic Qualifiers: Hypertension type: essential hypertension Qualified Code(s): I10 - Essential (primary) hypertension Plan: Stable, continue home BP regimen (3) Hypothyroidism Code(s): E03.9 - HYPOTHYROIDISM, UNSPECIFIED Status: Chronic Plan: Continue Levothyroxine (4) Atrial fibrillation Code(s): I48.91 - UNSPECIFIED ATRIAL FIBRILLATION Status: Chronic Plan: Current SR, continue Tambocor (5) Chronic pain Code(s): G89.29 - OTHER CHRONIC PAIN Status: Chronic Qualifiers: Chronic pain type: chronic pain syndrome Qualified Code(s): G89.4 - Chronic pain syndrome Plan: continue home regimen, limit polypharmacy - Plan PT/OT, adoption social worker, out of bed/ambulate, DVT proph w/SCDs Stable currently Continue to encourage increased free-H2O intake Limit sedation/psychotropic medications PT/OT for mobilization Ok to d/c home from medical standpoint
[2019-01-10] MEDS ORDERED: DULoxetine 60 MG CAP PO SCH (09:00)
[2019-01-10] MEDS ORDERED: Triamterene/Hydrochlorothiazid 75 mg/50 mg Tablet PO SCH (09:00)
[2019-01-10 12:09] VITALS: BP 115/58; TEMP 97.8
--- NOTE | 2019-01-10 14:09 | DIS ---
DATE OF ADMISSION: 01/09/2019 DATE OF DISCHARGE: 01/10/2019 The patient is a 68-year-old female, recently evaluated in the office by Dr. Chacon for progressive claudicatory symptoms and found to have lumbar stenosis. She underwent L1 through S1 laminectomy on 01/09/2019. Following the surgery, she was transitioned to the Med/Surg floor. While up on the floor, the patient was attempting to use the restroom and had sudden syncopal event. She was evaluated by Medicine with no evidence of acute cardiac event and a CT head was negative. She was monitored in the CCU for short period of time, which she remained stable and was then transitioned to the telemetry floor. She has had no issues overnight. She is feeling back to herself and ambulating easily in the halls. She would like to go home today and I feel that this is appropriate. Otherwise, her pain is well controlled. She is tolerating a regular diet, voiding appropriately. On exam this morning, she is awake and alert, in no acute distress. She has free active range of motion of all extremities. No focal motor weakness. Her incision is clean, dry, and intact. We will plan to dismiss the patient to home. I have discussed home care and precautions. She has been provided with scripts for Tylenol No. 4 for pain. Job ID: [id number]
[2019-01-10] MEDS ORDERED: Acetaminophen 325 MG TAB PO PRN (18:00)
--- NOTE | 2019-01-13 10:32 | EKG ---
Test Reason : Blood Pressure : / mmHG Vent. Rate : 078 BPM Atrial Rate : 078 BPM P-R Int : 182 ms QRS Dur : 080 ms QT Int : 406 ms P-R-T Axes : 077 005 035 degrees QTc Int : 462 ms Normal sinus rhythm Septal infarct , age undetermined Abnormal ECG Confirmed by CATHLEEN CALVILLO, SANFORD ([id number]) on 01/13/2019 10:31:35 AM Referred By: ARETHA Confirmed By:SANFORD CONNOLLY MD
== END 2019-01-10 13:51 | disposition home or self-care (01) | DRG 517 ==
LOC: SDC 06:10 → SURG B 11:44 → SDC 15:29 → CCU 15:29 → 2NO 21:07
PROVIDERS: ADMIT Surgery; ATTEND Surgery
PROC: 01NB0ZZ Release Lumbar Nerve, Open Approach (ICD-10-PCS; principal; 2019-01-09)
PROC: 01NR0ZZ Release Sacral Nerve, Open Approach (ICD-10-PCS; 2019-01-09)
DX: M48.062 Spinal stenosis, lumbar region with neurogenic claudication (principal); M54.16 Radiculopathy, lumbar region; E03.9 Hypothyroidism, unspecified; E78.5 Hyperlipidemia, unspecified; K21.9 Gastro-esophageal reflux disease without esophagitis; I48.91 Unspecified atrial fibrillation; J44.9 Chronic obstructive pulmonary disease, unspecified; G89.4 Chronic pain syndrome; E86.9 Volume depletion, unspecified; Z98.0 Intestinal bypass and anastomosis status; Z95.0 Presence of cardiac pacemaker; Z90.49 Acquired absence of other specified parts of digestive tract; Z79.899 Other long term (current) drug therapy; Z79.82 Long term (current) use of aspirin; Z79.890 Hormone replacement therapy; Z88.5 Allergy status to narcotic agent; Z88.0 Allergy status to penicillin; Z87.891 Personal history of nicotine dependence
CPT/HCPCS: 36415; 36416; 70450; 76000; 80053; 83880; 84484; 85025; 93005; 93010; J0131; J1885; J1956; J2250; J2310; J2370; J3010; J3370; J3490

== ENCOUNTER 2019-02-23 14:03 | Outpatient (CLI) | payer MEDICARE, OTHER ==
--- NOTE | 2019-02-23 14:55 | ULT ---
VENOUS DOPPLER ULTRASOUND OF THE RIGHT LOWER EXTREMITY: Date: 02/23/19 HISTORY: Right lower extremity edema. Back surgery 01/09/19. Posterior knee pain. TECHNIQUE: Adams scale ultrasound with color flow and spectral Doppler imaging of the deep venous system of the r ight lower extremity was performed. FINDINGS: There is good flow, compression, and augmentation noted in the right common femoral, femoral, deep fe moral, popliteal, posterior tibial, and greater saphenous veins. There is a complex fluid collection, likely Alva's cyst, in the right popliteal fossa measuring 2.7 x 2.0 x 1.8 cm. IMPRESSION: No evidence of deep venous thrombosis in the right lower extremity. POS: TPC
--- NOTE | 2019-02-23 14:59 | RAD ---
RIGHT KNEE 4 VIEWS: HISTORY: Pain in the right knee. FINDINGS: There are postop changes of unicompartmental knee arthroplasty changes involving the medial tibiofemo ral compartment in good position and alignment. No acute fracture, dislocation, or bony destruction is seen. No perihardware lucency is identified to suggest loosening. No joint effusion is noted. IMPRESSION: No acute process. POS: TPC
== END 2019-02-23 14:04 | disposition home or self-care (01) ==
LOC: ULT 14:03
PROVIDERS: ATTEND Internal Medicine
DX: M79.604 Pain in right leg (principal)

== ENCOUNTER 2019-11-17 09:23 | Outpatient (CLI) | payer MEDICARE, OTHER ==
--- NOTE | 2019-11-17 10:37 | MMO ---
Bilateral MAMMO Bilat Diag DDI+SAMI. CLINICAL HISTORY: Patient is 68 years old and is seen for diagnostic exam,lump or thickening in the left breast at 6 o'clock and pain in the outer region of the left breast. The patient has the following family history of breast cancer: mother, at age 45, malignant (generic). The patient has no personal history of cancer. The patient has a history of right Excisional Biopsy in 1992 - benign. VIEWS: The views performed were: bilateral craniocaudal with tomosynthesis; bilateral mediolateral oblique with tomosynthesis; and bilateral mediolateral with tomosynthesis. FILMS COMPARED: The present examination has been compared to prior imaging studies performed at [facility] on 12/16/2014, 09/12/2016, 10/08/2017 and 11/17/2019. This study has been interpreted with the assistance of computer-aided detection. MAMMOGRAM FINDINGS: The breasts are heterogeneously dense, which could obscure a lesion on mammography. Finding 1: There are stable benign appearing calcifications seen in both breasts. Finding 2: There are stable benign appearing densities seen in both breasts. There are no suspicious masses, suspicious calcifications, or new areas of architectural distortion. IMPRESSION: FINDING 1: STABLE CALCIFICATIONS IN BOTH BREASTS ARE BENIGN. FINDING 2: STABLE BENIGN APPEARING DENSITIES IN BOTH BREASTS ARE BENIGN. NO MAMMOGRAPHIC OR ULTRASOUND FINDING TO ACCOUNT FOR THE PALPABLE FINDING. A ROUTINE FOLLOW-UP MAMMOGRAM IN 1 YEAR IS RECOMMENDED. THE RESULTS OF THIS EXAM WERE SENT TO THE PATIENT. ACR BI-RADS Category 2 - Benign finding MAMMOGRAPHY NOTE: 1. A negative mammogram report should not delay a biopsy if a dominant of clinically suspicious mass is present. 2. Approximately 10% to 15% of breast cancers are not detected by mammography. 3. Adenosis and dense breasts may obscure an underlying neoplasm. Reported by: MAC HAMEED MD Electonically Signed: [id number]
--- NOTE | 2019-11-17 11:54 | ULT ---
LEFT BREAST ULTRASOUND: Date: 11/17/2019 HISTORY: Palpable finding at 6 o'clock. FINDINGS: This area is evaluated with ultrasound. There is no evidence for solid or cystic mass or architectura l distortion, or other evidence for abnormal ultrasound findings. Mammogram in this region was negative as well. IMPRESSION: BI-RADS Category 2 - Benign findings. No evidence for solid or cystic mass, or other abnormal ultraso und finding to account for the palpable finding at 6 o'clock in the left breast. Continued annual fol low-up screening mammogram recommended. POS: OFF
== END 2019-11-17 09:24 | disposition home or self-care (01) ==
LOC: BICMAMMO 09:23
PROVIDERS: ATTEND Internal Medicine
DX: N64.4 Mastodynia (principal); R92.1 Mammographic calcification found on diagnostic imaging of breast; N64.89 Other specified disorders of breast
CPT/HCPCS: 76642; 77066; G0279

== ENCOUNTER 2020-01-26 15:56 | Inpatient (IN) | payer MEDICARE, OTHER ==
[~2020-01-26 15:56] MED LIST changes: -ISOVUE-370 76%-LOCM 1 ML ONE; +Iopamidol-370 76% 500 ML 1 ML ONE
[2020-01-26] MEDS ORDERED: methylPREDNISolone Sod Succ/PF 125 MG/2 ML VIAL ONE (16:14)
[2020-01-26 16:34] LABS: #Basophils 0.1 thou/uL (0.0-0.2); #Eosinphils 0.2 thou/uL (0.0-0.7); #Lymphocytes 2.2 thou/uL (1.20-3.40); #Monocytes 0.7 thou/uL (0.11-0.59); #Neutrophils 7.8 thou/uL (1.40-6.50); %Basophils 0.9 % (0.0-1.0); %Eosinophils 1.5 % (0.0-10.0); %Monocytes 6.3 % (0.0-10.0); %Neutrophils 71.2 % (42.0-75.0); Mean Corpuscular Hemoglobin 30.5 pg (27.0-31.0); Mean Corpuscular Volume 89.6 fL (78.0-98.0); Platelet Count 283 thou/uL (130-400); RBC Distribution Width 12.5 % (11.5-14.5); Red Blood Cell (RBC) Count 5.24 mill/uL (4.20-5.40); White Blood Cell (WBC) Count 10.9 thou/uL (4.8-10.8)
--- NOTE | 2020-01-26 16:42 | RAD ---
XR Chest 1 View Portable History: Shortness of breath Comparison: Radiograph 2019 Findings: Lungs are mildly hypoinflated. Dual-lead pacer is similar. No confluent airspace consolidat ion, pneumothorax or effusion. Moderate degenerative changes both glenohumeral joints. Right upper quadrant surgical clips. Impression: No acute intrathoracic abnormality.
[2020-01-26] MEDS ORDERED: Albuterol Sulfate 2.5 mg/3 ml Neb ONE ×2 (16:54→18:29)
[2020-01-26] MEDS ORDERED: Magnesium 2 GM/50 ML BAG (IN WATER) ONE (16:56)
[2020-01-26 17:10] LABS: ALT (SGPT) 21 U/L (8-55); AST (SGOT) 41 U/L (5-34); Albumin 4.3 g/dL (3.4-4.8); Alkaline Phosphatase 93 U/L (40-110); Anion Gap 16 mmol/L (10-20); BUN (Urea Nitrogen) 17 mg/dL (9.8-20.1); Bilirubin, Total 0.3 mg/dL (0.2-1.2); Calc. Creatinine Clearance 0 mL/min (70-130); Calcium 9.6 mg/dL (7.8-10.44); Carbon Dioxide 26 mmol/L (23-31); Chloride 101 mmol/L (98-107); Estimated GFR-MDRD 48; Globulin 4.1 g/dL (2.4-3.5); Glucose 74 mg/dL (80-115); Potassium 4.2 mmol/L (3.5-5.1); Protein, Total 8.4 g/dL (6.0-8.3); Sodium 139 mmol/L (136-145)
--- NOTE | 2020-01-26 17:41 | CT ---
CT angiogram chest with IV contrast and 3-D imaging HISTORY: Dyspnea. Chest pain. COMPARISON: 03/16/2018. FINDINGS: There is good contrast opacification pulmonary arteries and thoracic aorta with normal bran rosita great vessels at the aortic arch. Left subclavian cardiac electronic device is in place. No pleural fluid or mediastinal adenopathy. Bariatric type postoperative changes of the stomach are appa rent with fluid in the esophagus. Within the partially visualized upper abdomen, the gallbladder surgically absent. There are prominent degenerative changes of each shoulder. IMPRESSION : No evidence of pulmonary embolus. Esophageal reflux. Other incidental findings as detailed above.
[2020-01-26] MEDS ORDERED: Lorazepam 2 MG/ML VIAL ONE (19:18)
[2020-01-26 20:50] LABS: Troponin I Less than 0.010 ng/mL (< 0.028)
--- NOTE | 2020-01-26 20:51 | PDOC.HHP ---
Hospitalist HPI - History of Present Illness Shortness of breath History of Present Illness: 69-year-old woman with a history of COPD, migraine headaches, atrial fibrillation, status post pacemaker presented to the emergency department with a complaint of progressive shortness of breath of about 3 days duration. Patient stated she tested negative for coronavirus a couple of days ago. She was started on oral prednisone albuterol inhaler and doxycycline by her PCP with no improvement. She became increasingly short of breath and therefore presented to the emergency department. Patient reported cough productive of yellow sputum, associated bilateral flank pain and chest pain. CTA thorax done in the emergency department was negative for pulmonary embolism. Patient was desaturating on room air. He was requiring BiPAP for respiratory distress. Patient given IV antibiotic, IV steroid, IV magnesium and multiple neb treatment. She is hospitalized for further management of COPD exacerbation. Hospitalist ROS - Review of Systems Other: Patient denied any fever, she denied any palpitation, she denied any abdominal pain. Except as documented, all other systems reviewed and negative. - Medication Medications: Medication Instructions Recorded Confirmed Type Levothyroxine Sodium [Tirosint] 25 mcg PO DAILY 10/02/15 01/27/20 History Rosuvastatin Calcium [Crestor] 10 mg PO HS 10/02/15 01/27/20 History Flecainide [Tambocor] 50 mg PO BID #0 tab 10/04/15 01/27/20 Rx Azelastine [Azelastine 137 mcg 1 spray EA NARE BID 01/02/19 01/27/20 History (0.1%) Nasal [place]] Beclomethasone Dipropionate [Qvar 2 puff IH BID 01/02/19 01/27/20 History Redihaler] DULoxetine [Cymbalta] 90 mg PO DAILY 01/02/19 01/27/20 History Eszopiclone [Lunesta] 3 mg PO HS 01/09/19 01/27/20 History diphenhydrAMINE [Benadryl] 50 mg PO HS 01/09/19 01/27/20 History Acetaminophen [Tylenol Extra 1,000 mg PO Q4HR PRN 01/10/19 01/27/20 History Strength] Aspirin [Ecotrin Low Strength] 81 mg PO HS #0 01/10/19 01/27/20 Rx Melatonin 10 mg PO HS 01/10/19 01/27/20 History Triamterene/Hydrochlorothiazid 1 cap PO BID 01/10/19 01/27/20 History [Triamterene-Hctz 37.5-25 mg Cp] Atorvastatin Calcium [Lipitor] 10 mg PO DAILY 01/27/20 01/27/20 History Hospitalist History - Past Medical History Other Medical History: COPD, atrial fibrillation, hyperlipidemia, migraine headaches, hypothyroidism. - Past Surgical History Other Surgical History: Pacemaker placement, bilateral knee surgery, appendectomy, carpal tunnel syndrome surgery, gallbladder surgery, gastric bypass. - Exam General Appearance: awake alert General - other findings: Mild respiratory distress. Eye: PERRL, anicteric sclera ENT: no oropharyngeal lesions, moist mucosa Neck: supple, no JVD Heart: no murmur, no gallops, irregular Respiratory - other findings: Diffuse diminished breath sounds, mild scattered rhonchi. Gastrointestinal: soft, non-tender, normal bowel sounds Extremities: no cyanosis, no edema Skin: normal turgor, no rashes Neurological: cranial nerve grossly intact, no weakness, no focal deficits Musculoskeletal: normal tone, normal strength Psychiatric: normal affect, normal behavior, A&O x 3 Hospitalist Results - Labs Result Diagrams: 01/26/20 16:23 01/26/20 16:23 Lab results: WBC 10.9 thou/uL (4.8-10.8) H 01/26/20 16:23 Hgb 16.0 g/dL (12.0-16.0) 01/26/20 16:23 Hct 47.0 % (36.0-47.0) 01/26/20 16:23 MCV 89.6 fL (78.0-98.0) 01/26/20 16:23 Plt Count 283 thou/uL (130-400) 01/26/20 16:23 Neutrophils % 71.2 % (42.0-75.0) 01/26/20 16:23 Sodium 139 mmol/L (136-145) 01/26/20 16:23 Potassium 4.2 mmol/L (3.5-5.1) 01/26/20 16:23 Chloride 101 mmol/L (98-107) 01/26/20 16:23 Carbon Dioxide 26 mmol/L (23-31) 01/26/20 16:23 BUN 17 mg/dL (9.8-20.1) 01/26/20 16:23 Creatinine 1.13 mg/dL (0.6-1.1) H 01/26/20 16:23 Glucose 74 mg/dL (80-115) L 01/26/20 16:23 Calcium 9.6 mg/dL (7.8-10.44) 01/26/20 16:23 Total Bilirubin 0.3 mg/dL (0.2-1.2) 01/26/20 16:23 AST 41 U/L (5-34) H 01/26/20 16:23 ALT 21 U/L (8-55) 01/26/20 16:23 Alkaline Phosphatase 93 U/L (40-110) 01/26/20 16:23 Troponin I Less than 0.010 ng/mL (< 0.028) 01/26/20 16:23 B-Natriuretic Peptide 59.7 pg/mL (0-100) 01/26/20 16:23 Serum Total Protein 8.4 g/dL (6.0-8.3) H 01/26/20 16:23 Albumin 4.3 g/dL (3.4-4.8) 01/26/20 16:23 Hospitalist H&P A/P - Problem (1) Acute respiratory failure with hypoxia Code(s): J96.01 - ACUTE RESPIRATORY FAILURE WITH HYPOXIA Status: Acute (2) COPD exacerbation Code(s): J44.1 - CHRONIC OBSTRUCTIVE PULMONARY DISEASE W (ACUTE) EXACERBATION Status: Acute (3) Atrial fibrillation Code(s): I48.91 - UNSPECIFIED ATRIAL FIBRILLATION Status: Chronic (4) Hypothyroidism Code(s): E03.9 - HYPOTHYROIDISM, UNSPECIFIED Status: Chronic - Plan Plan: Admit patient to [facility]. Continue BiPAP and wean to oxygen by nasal cannula as tolerated. We will treat with scheduled DuoNeb, IV Solu-Medrol. IV Levaquin for possible infected bronchitis. Continue other home medications. Including Synthroid.
--- NOTE | 2020-01-26 21:13 | PDOC.FMACP ---
Advance Care Planning - Problem (1) Acute respiratory failure with hypoxia Status: Acute Code(s): J96.01 - ACUTE RESPIRATORY FAILURE WITH HYPOXIA (2) COPD exacerbation Status: Acute Code(s): J44.1 - CHRONIC OBSTRUCTIVE PULMONARY DISEASE W (ACUTE) EXACERBATION (3) Atrial fibrillation Status: Chronic Code(s): I48.91 - UNSPECIFIED ATRIAL FIBRILLATION (4) Hypothyroidism Status: Chronic Code(s): E03.9 - HYPOTHYROIDISM, UNSPECIFIED - Note Summary: Advanced Care Planning was discussed. The diagnosis, prognosis and goals of care were discussed. Appropriate forms and documentation to accomplish the goals of care were discussed. All questions were answered. Patient wishes to be full code. Her is a medical decision maker. She has no documented living will. Time Spent (mins): 18
[2020-01-26 23:08] LABS: Troponin I Less than 0.010 ng/mL (< 0.028)
[2020-01-27] MEDS: methylPREDNISolone Sod Succ 40 MG VIAL IVP SCH ×5 (00:36→23:48)
[2020-01-27] MEDS ORDERED: methylPREDNISolone Sod Succ 40 MG VIAL ONE (00:50)
[2020-01-27 01:51] VITALS: BMI 38.5
[2020-01-27] MEDS ORDERED: Flecainide 50 MG TAB PO SCH ×2 (04:00→09:00)
[2020-01-27] MEDS ORDERED: Zolpidem Tartrate 5 MG TAB PO SCH ×3 (04:00→21:00)
[2020-01-27] MEDS: Melatonin 3 MG TAB PO PRN ×2 (04:18→20:29)
[2020-01-27] MEDS ORDERED: FLU VACC QS2020-21(65YR UP)/PF 240 MCG/0.7 ML SYRINGE IM ONE (09:00)
[2020-01-27] MEDS: Flecainide 50 MG TAB PO SCH ×2 (09:22→20:24)
[2020-01-27 10:59] LABS: SARS-CoV-2 MS2 Positive; SARS-CoV-2 N Gene Negative; SARS-CoV-2 S Gene Negative; SARS-CoV-2 by NAA Not Detected (NotDetected); SARS-CoV-2 orf1ab Negative
[2020-01-27] MEDS: Ipratropium/Albuterol Sulfate 4 GM AER IH SCH ×3 (12:45→23:48)
--- NOTE | 2020-01-27 14:59 | PDOC.HOSPP ---
- Subjective Encounter Date: 01/27/20 Encounter Time: 08:00 Subjective: Patient seen for follow-up regarding acute hypoxic respiratory failure. She reports feeling better. - Objective Vital Signs & Weight: Vital Signs (12 hours) Temp Pulse Ox 01/27/20 11:00 98.2 F 01/27/20 07:21 98 01/27/20 07:19 97.2 F L 01/27/20 03:40 98.0 F Weight Weight 190 lb 9.6 oz Most Recent Monitor Data Heart Rate from ECG 72 NIBP 134/62 NIBP BP-Mean 86 Respiration from ECG 25 SpO2 98 I&O: 01/26/20 01/27/20 01/28/20 06:59 06:59 06:59 Intake Total 520 Output Total 200 Balance 320 Result Diagrams: 01/26/20 16:23 01/26/20 16:23 Additional Labs: Labs and MAR reviewed by me EKG Reviewed by me: Yes (Atrial fibrillation on telemetry) Hospitalist ROS - Review of Systems Constitutional: denies: fever, chills, sweats, weakness, malaise Respiratory: reports: cough, dry, SOB with excertion. denies: shortness of breath, hemoptysis, pleuritic pain, sputum, wheezing Cardiovascular: denies: chest pain, palpitations, orthopnea, paroxysmal noc. dyspnea, edema, light headedness - Medication Medications: Active Medications Generic Name Dose Route Start Last Admin Trade Name Freq PRN Reason Stop Dose Admin Albuterol/Ipratropium 1 gm 01/27/20 13:00 01/27/20 12:45 Ipratropium/Albuterol Sulfate 4 Gm Aer IH 1 mcg [id number] MARLEN Administration Flecainide Acetate 50 mg 01/27/20 03:39 01/27/20 09:22 Flecainide 50 Mg Tab PO 50 mg BID MARLEN Administration Melatonin 9 mg 01/27/20 03:40 01/27/20 04:18 Melatonin 3 Mg Tab PO 9 mg HS PRN Administration Insomnia Methylprednisolone Sodium Succinate 40 mg 01/26/20 23:59 01/27/20 12:44 Methylprednisolone Sod Succ 40 Mg Vial IVP 40 mg Q6HR MARLEN Administration - Exam General - other findings: Obese Eye: anicteric sclera ENT: moist mucosa Neck: supple Heart: no rubs, irregular Respiratory - other findings: Diminished air entry at both bases Gastrointestinal: soft, non-tender Skin: no rashes Psychiatric: normal affect, normal behavior Hosp A/P - Plan -Assessment (1) Acute respiratory failure with hypoxia Code(s): J96.01 - ACUTE RESPIRATORY FAILURE WITH HYPOXIA Status: Acute (2) COPD exacerbation Code(s): J44.1 - CHRONIC OBSTRUCTIVE PULMONARY DISEASE W (ACUTE) EXACERBATION Status: Acute (3) Atrial fibrillation Code(s): I48.91 - UNSPECIFIED ATRIAL FIBRILLATION Status: Chronic (4) Hypothyroidism Code(s): E03.9 - HYPOTHYROIDISM, UNSPECIFIED Status: Chronic - Plan Patient has been weaned off of BiPAP. Continue scheduled DuoNeb, IV Solu-Medrol. Continue IV Levaquin for possible infected bronchitis. Continue Synthroid.
--- NOTE | 2020-01-27 17:01 | CON ---
DATE OF CONSULTATION: 01/27/2020 HISTORY OF PRESENT ILLNESS: Sandy Suazo is a 69-year-old who is admitted with several weeks of progressive shortness of breath. She carries a diagnosis of chronic obstructive pulmonary disease, but she quit smoking in 1984 and says she only smoked for about 5 years. She denies having asthma when she was a little girl. She says she feels 100% better and wants to go home. She says she has never seen a pulmonary physician. PAST MEDICAL HISTORY: Remarkable for, 1. Atrial fibrillation. 2. History of vascular headaches. 3. History of pacemaker. 4. History of lipid disorder. 5. History of hypothyroidism. 6. History of bilateral knee surgery. 7. History of appendectomy. 8. History of carpal tunnel surgery. 9. History of cholecystectomy. 10. History of gastric bypass. FAMILY HISTORY: Negative for lung disease in early age. SOCIAL HISTORY: Noncontributory. is in the room with her. PHYSICAL EXAMINATION: GENERAL: She is pleasant, in no distress. VITAL SIGNS: She is afebrile, heart rate is 82, respiratory rate is 18, oximetry is 95% on room air, blood pressure 153/84. HEAD AND NECK: Unremarkable. LUNGS: Distant, but clear. HEART: Regular rhythm. ABDOMEN: Soft and nontender. EXTREMITIES: Without clubbing, cyanosis, or edema. IMAGING STUDIES: CT scan done in the emergency room showed no pulmonary embolus. She has fluid in her esophagus. No alveolar infiltrates were seen. IMPRESSION AND PLAN: Probable chronic persistent asthma. Given the fluid in her esophagus, I would wonder if she had nocturnally aspirating, which is creating her problems. I doubt she has true chronic obstructive pulmonary disease given that she only smoked for 5 years. It is unlikely she has alpha-1 antitrypsin deficiency. She is stable to move out of the intermediate care unit. This is a 50 min. visit with greater than 50% of the time spent on the unit with coordination of care. Job ID: [id number] [facility]
[2020-01-27] MEDS ORDERED: Acetaminophen 650 MG/20.3 ML UDCUP PO PRN (17:26)
[2020-01-27] MEDS ORDERED: Acetaminophen 325 MG TAB PO PRN (20:19)
[2020-01-27] MEDS: Diabetic Tussin 200 MG/10 ML UDCUP PO PRN ×2 (20:33→23:48)
[2020-01-27] MEDS ORDERED: Melatonin 3 MG TAB PO SCH (21:00)
[2020-01-27] MEDS ORDERED: Rosuvastatin 10 MG TAB PO SCH (21:00)
[2020-01-28] MEDS: methylPREDNISolone Sod Succ 40 MG VIAL IVP SCH ×2 (05:42→10:49)
[2020-01-28] MEDS ORDERED: Levothyroxine Sodium 25 MCG TAB PO SCH (06:00)
[2020-01-28] MEDS: Ipratropium/Albuterol Sulfate 4 GM AER IH SCH ×2 (07:04→13:00)
[2020-01-28] MEDS: Flecainide 50 MG TAB PO SCH (08:31)
[2020-01-28] MEDS ORDERED: DULoxetine 30 MG CAP PO SCH (09:00)
[2020-01-28] MEDS: Diabetic Tussin 200 MG/10 ML UDCUP PO PRN (09:37)
[2020-01-28] MEDS ORDERED: Promethazine 25 MG TAB PO PRN (10:17)
[2020-01-28] MEDS ORDERED: diphenhydrAMINE 25 MG CAP PO PRN (10:18)
[2020-01-28] MEDS ORDERED: guaiFENesin ER 600 MG TAB PO SCH ×2 (10:30→21:00)
[2020-01-28 12:22] VITALS: TEMP 98.1
[2020-01-28 14:31] VITALS: BP 142/76
--- NOTE | 2020-01-28 19:12 | PRG ---
DATE OF SERVICE: SUBJECTIVE: Sandy Suazo is doing well. She denies shortness of breath. She feels like she is back to her baseline. OBJECTIVE: VITAL SIGNS: Vital signs have been stable overnight. LUNGS: Clear. HEART: Regular rhythm. ABDOMEN: Soft. PLAN: After I examined her in the room and talked to her about followup with me, I saw her walking in the [place]. She is walking without dyspnea. I answered a few more questions. She needs a slow steroid taper over the next 10 to 14 days. She has nebulizer at home. I will be happy to see her in followup in a month. Job ID: [id number]
--- NOTE | 2020-01-28 22:33 | PDOC.DS.DS ---
Provider - Provider Date of Admission: 01/26/20 19:46 Date of Discharge: 01/28/20 Admitting Provider: Mathew Rojas MD Consultations: Pulmonary Primary Care Physician: Alicia Stahl MD Course - Hospital Course Hospital Course: Patient is a 69-year-old female with COPD/asthma presented to the emergency room with shortness of breath of 3 days duration on 01/25. Patient was recently placed on doxycycline and prednisone with bronchodilators as outpatient. Shortness of breath got worse despite the above measures for which she presented to the ER. Please refer to the history and physical for further details. She was started on noninvasive positive pressure ventilation in the emergency room. CT angiogram of the chest was negative for pulmonary embolism. Patient was monitored in the IMCU for close monitoring and noninvasive positive pressure ventilation. She was placed on empiric antibiotics along with IV steroids and nebulizer treatments. Patient was evaluated by pulmonary Dr. Elizondo. Dr. Elizondo felt that patient probably has more of asthma exacerbation. Antibiotics have been discontinued. She will be that home on oral prednisone taper. Final diagnosis: Acute hypoxic respiratory failure due to asthma exacerbation History of chronic persistent asthma/? COPD Paroxysmal atrial fibrillation Hypothyroidism Insomnia Hyperlipidemia Anxiety - Labs Lab Results: 01/26/20 16:23 01/26/20 16:23 Microbiology - Entire Visit 01/26/20 17:46 Venous blood - Left Arm Blood Culture - Preliminary NO GROWTH AT 48 HOURS 01/26/20 17:40 Venous blood - Right Hand Blood Culture - Preliminary NO GROWTH AT 48 HOURS 01/26/20 19:40 Nasal swab Influenza Types A,B Direct EIA - Final - Physical Exam Vitals: Vital Signs (12 hours) Temp Pulse Resp BP Pulse Ox 01/28/20 14:30 142/76 H 01/28/20 12:17 98.1 F 72 20 189/75 H 96 Weight Weight 190 lb 9.6 oz Most Recent Monitor Data Heart Rate from ECG 72 NIBP 134/62 NIBP BP-Mean 86 Respiration from ECG 25 SpO2 98 Physical Exam: The patient was seen and examined on the day of discharge. Plan - Discharge Medications Prescriptions: guaiFENesin ER [Mucinex] 600 mg PO Q12HR #60 tab predniSONE 20 mg PO ASDIR #16 tab Home Medications: Medication Instructions Recorded Confirmed Type Levothyroxine Sodium [Tirosint] 25 mcg PO DAILY 10/02/15 01/27/20 History Rosuvastatin Calcium [Crestor] 10 mg PO HS 10/02/15 01/27/20 History Flecainide [Tambocor] 50 mg PO BID #0 tab 10/04/15 01/27/20 Rx Azelastine [Azelastine 137 mcg 1 spray EA NARE BID 01/02/19 01/27/20 History (0.1%) Nasal Revelo] Beclomethasone Dipropionate [Qvar 2 puff IH BID 01/02/19 01/27/20 History Redihaler] DULoxetine [Cymbalta] 90 mg PO DAILY 01/02/19 01/27/20 History Eszopiclone [Lunesta] 3 mg PO HS 01/09/19 01/27/20 History diphenhydrAMINE [Benadryl] 50 mg PO HS 01/09/19 01/27/20 History Acetaminophen [Tylenol Extra 1,000 mg PO Q4HR PRN 01/10/19 01/27/20 History Strength] Aspirin [Ecotrin Low Strength] 81 mg PO HS #0 01/10/19 01/27/20 Rx Melatonin 10 mg PO HS 01/10/19 01/27/20 History Triamterene/Hydrochlorothiazid 1 cap PO BID 01/10/19 01/27/20 History [Triamterene-Hctz 37.5-25 mg Cp] Atorvastatin Calcium [Lipitor] 10 mg PO DAILY 01/27/20 01/27/20 History guaiFENesin ER [Mucinex] 600 mg PO Q12HR #60 tab 01/28/20 Rx predniSONE 20 mg PO ASDIR #16 tab 01/28/20 Rx Allergies: Penicillins Allergy (Verified 01/02/19 13:46) pt. states she takes penicillins now morphine Adverse Reaction (Verified 01/02/19 13:46) itching - Discharge Instructions Discharge Instructions:: YOUR PRESCRIPTIONS WERE SENT TO: [facility] [address], [place], [place] [id number] - Follow up Plan Referrals: Alicia Stahl MD [Primary Care Provider] - 7 Days Richard Elizondo MD [Active] - 2-3 Weeks Disposition: HOME Quality - Care Measures CORE MEASURES:: N/A
--- NOTE | 2020-02-02 02:12 | EKG ---
Test Reason : Blood Pressure : / mmHG Vent. Rate : 064 BPM Atrial Rate : 064 BPM P-R Int : 144 ms QRS Dur : 080 ms QT Int : 410 ms P-R-T Axes : 050 010 036 degrees QTc Int : 422 ms Electronic atrial pacemaker When compared with ECG of 26-JAN-2020 16:06, (Unconfirmed) Electronic atrial pacemaker has replaced Sinus rhythm Confirmed by SANFORD CONNOLLY MD ([id number]) on 02/02/2020 2:11:48 AM Referred By: ELVIA ROA Confirmed By:SANFORD CONNOLLY MD
== END 2020-01-28 16:41 | disposition home or self-care (01) | DRG 189 ==
LOC: ERS 15:56 → ERHOLD 19:46 → IMCU/EMU 01-27 01:28 → T4-B 01-27 14:50
PROVIDERS: ADMIT Internal Medicine; ATTEND Internal Medicine
PROC: 5A09357 Assistance with Respiratory Ventilation, Less than 24 Consecutive Hours, Continuous Positive Airway Pressure (ICD-10-PCS; principal; 2020-01-26)
DX: J96.01 Acute respiratory failure with hypoxia (principal); J45.901 Unspecified asthma with (acute) exacerbation; J44.1 Chronic obstructive pulmonary disease with (acute) exacerbation; G43.909 Migraine, unspecified, not intractable, without status migrainosus; E03.9 Hypothyroidism, unspecified; I48.0 Paroxysmal atrial fibrillation; F32.9 Major depressive disorder, single episode, unspecified; Z90.49 Acquired absence of other specified parts of digestive tract; Z88.0 Allergy status to penicillin; Z88.5 Allergy status to narcotic agent; Z79.899 Other long term (current) drug therapy; Z79.51 Long term (current) use of inhaled steroids; Z87.891 Personal history of nicotine dependence; Z95.0 Presence of cardiac pacemaker; Z98.84 Bariatric surgery status
CPT/HCPCS: 36415; 71045; 71275; 80053; 83880; 84484; 85025; 87040; 87635; 87804; 93005; 93010; 94640; 94644; 94660; 96365; 96366; 96367; 96375; J1956; J2060; J2920; J2930; J3475; J7611; J7620; Q0169; Q9967; U0003

== ENCOUNTER 2020-02-22 09:56 | Outpatient (CLI) | payer MEDICARE, OTHER ==
--- NOTE | 2020-02-22 10:19 | RAD ---
RADIOGRAPH CHEST 2 VIEWS: DATE: 02/22/2020 HISTORY: 69-year-old female with dyspnea FINDINGS: There is no airspace density, pulmonary edema, pleural effusion, pneumothorax, or cardiomegaly. Promi nent interstitial markings. Left subclavian dual lead pacemaker. IMPRESSION: No acute cardiopulmonary findings.
== END 2020-02-22 09:57 | disposition home or self-care (01) ==
LOC: BICRAD 09:56
PROVIDERS: ATTEND Internal Medicine Critical Care Medicine
DX: R06.00 Dyspnea, unspecified (principal)
CPT/HCPCS: 71046

== ENCOUNTER 2020-12-20 13:04 | Outpatient (CLI) | payer MEDICARE, OTHER ==
[2020-12-20 23:48] LABS: SARS-CoV-2 PCR by NAA Not Detected (NotDetected)
== END 2020-12-20 13:05 | disposition home or self-care (01) ==
LOC: LABBT 13:04
PROVIDERS: ATTEND Internal Medicine
DX: Z01.812 Encounter for preprocedural laboratory examination (principal); K59.00 Constipation, unspecified; K21.9 Gastro-esophageal reflux disease without esophagitis; R11.2 Nausea with vomiting, unspecified; Z20.822 Contact with and (suspected) exposure to COVID-19
CPT/HCPCS: U0003; U0005

== ENCOUNTER 2020-12-23 09:15 | Outpatient (CLI) | payer MEDICARE, OTHER | END 2020-12-23 09:16 | disposition home or self-care (01) | LOC: RAD 09:15 | PROVIDERS: ATTEND Internal Medicine | DX: K21.9 Gastro-esophageal reflux disease without esophagitis (principal); K59.09 Other constipation; R11.2 Nausea with vomiting, unspecified; K22.89 Other specified disease of esophagus; Z90.49 Acquired absence of other specified parts of digestive tract; Z98.84 Bariatric surgery status; Z98.890 Other specified postprocedural states | CPT/HCPCS: 74018; 74240; 74246 ==

== ENCOUNTER 2024-01-09 06:11 | Day surgery (SDC) | payer MEDICARE, OTHER ==
[2024-01-08 10:19] VITALS: BMI 21.2
[2024-01-09] MEDS ORDERED: PROPOFOL 20 ML ONE (07:13)
[2024-01-09] MEDS ORDERED: Lidocaine 1% PF 5 ML VIAL ONE (07:14)
== END 2024-01-09 09:00 | disposition home or self-care (01) ==
LOC: SDC 06:11
PROVIDERS: ATTEND Internal Medicine
PROC: 0DJ08ZZ Inspection of Upper Intestinal Tract, Via Natural or Artificial Opening Endoscopic (ICD-10-PCS; principal; 2024-01-09)
DX: K59.09 Other constipation (principal); K22.89 Other specified disease of esophagus; I25.10 Atherosclerotic heart disease of native coronary artery without angina pectoris; F41.9 Anxiety disorder, unspecified; M19.90 Unspecified osteoarthritis, unspecified site; F32.A Depression, unspecified; K21.9 Gastro-esophageal reflux disease without esophagitis; E78.5 Hyperlipidemia, unspecified; I10 Essential (primary) hypertension; E03.9 Hypothyroidism, unspecified; G43.909 Migraine, unspecified, not intractable, without status migrainosus; Z95.0 Presence of cardiac pacemaker; Z79.01 Long term (current) use of anticoagulants; Z98.0 Intestinal bypass and anastomosis status; Z98.84 Bariatric surgery status; Z79.02 Long term (current) use of antithrombotics/antiplatelets; Z79.890 Hormone replacement therapy; Z79.899 Other long term (current) drug therapy; Z88.5 Allergy status to narcotic agent; Z88.0 Allergy status to penicillin
CPT/HCPCS: 43235; J2704